=== PATIENT | female | born 1950 | race Caucasian/White ===

== ENCOUNTER → 2024-04-07 12:14 | Outpatient (REF) | payer OTHER, SELFPAY | LOC: PAVMRI 12:14 | PROVIDERS: ATTENDING PHYSICIAN Physician Assistant; FAMILY PHYSICIAN Internal Medicine | DX: M54.16 Radiculopathy, lumbar region (principal) | CPT/HCPCS: 72148 ==

== ENCOUNTER 2024-04-21 14:50 | Emergency (ER) | payer OTHER, SELFPAY ==
[2024-04-21 14:52] VITALS: BP 127/68
[2024-04-21 15:33] VITALS: BP 121/60
[2024-04-21 16:00] VITALS: BP 142/69
[2024-04-21] MEDS: DECADRON 10 MG PO (16:40)
[2024-04-21] MEDS: TORADOL 30 MG IM (16:41)
[2024-04-21 17:00] VITALS: BP 125/71
--- NOTE | 2024-04-21 18:03 | ED.GENMED ---
History of Present Illness
General
Chief Complaint: Dizziness
Source: patient and spouse
Exam Limitations: none
Time Seen by Provider: 04/21/24 15:38
Nursing documentation reviewed up to this point in time: agreed with
History of Present Illness
History of Present Illness:
74-year-old female past medical history of hyperlipidemia and asthma presenting to the emergency department today with concerns of lightheadedness facial pressure over the past few weeks. Had a preceding viral illness. Had some pressure to her
right ear as well. Occasionally feels some room spinning dizziness but denies it being ongoing and only worse with certain positioning's movement does seem to always improve when sitting still. None currently seems to be improving.
Past History
Past History
ED Past Medical History: Hypercholesterolemia and Other (Seasonal allergic rhinitis, osteoarthritis, Diverticulitis)
ED Past Surgical History: Orthopedic (Bilateral hip replacement, right bunionectomy), Tonsilectomy and Other (bilateral hip replacement. agree with pshx)
Social History
Tobacco: Former smoker
Alcohol: Occasional
Personal:
Living: with family
Family History
Family History: Negative Hypertension or CAD
Review of Systems
Review of Systems
Allergies reviewed?: Yes
All Other Systems: ROS reviewed and negative except as documented in HPI and ROS
Phy Exam
Physical Exam
Physical Exam:
GENERAL: Alert , in no apparent distress
EYE: pupils equal and reactive
NECK: Supple, no significant adenopathy.
ENT: Swollen boggy nasal turbinates, effusion to the right ear mmm
CARDIAC: Regular rate and rhythm .
LUNGS: Clear breath sounds bilaterally, no acute respiratory distress, no wheezes/rales/rhonchi
ABDOMEN: Soft, without focal tenderness, no r/g, no cvat
NEUROLOGICAL: Alert and oriented, no focal neuro deficits
SKIN: Warm and dry, skin intact.
MUSCULOSKELETAL: No edema, well perfused.
PSYCH: Normal and appropriate interaction.
Course
Orders/Labs/Results
Orders:
Orders
04/21/24 14:51
Electrocardiogram (*1) Urgent
Reason for Study: Vertigo / Dizzy
04/21/24 14:52
EKG- Treatment ONCE
04/21/24 16:06
Dexamethasone [Decadron] 10 mg PO NOW STA
Ketorolac [Toradol] 30 mg IM NOW STA
CR Cervical Spine 4 Or 5 Vw Urgent
Comment:
Reason For Exam: neck pain
Vital Signs
Initial and Last Documented VS:
Initial Vital Signs
Temp Pulse Resp BP Pulse Ox
98 F 60 16 127/68 100
04/21/24 14:52 04/21/24 14:52 04/21/24 14:52 04/21/24 14:52 04/21/24 14:52
Last Documented Vital Signs
Temp Pulse Resp BP Pulse Ox
98 F 60 16 127/68 100
04/21/24 14:52 04/21/24 14:52 04/21/24 14:52 04/21/24 14:52 04/21/24 14:52
MDM/Problems Addressed
MDM/Problems Addressed:
74-year-old female presenting to the emergency department today with concerns of congestion ear fullness. Vital signs are normal on arrival normal neurologic evaluation. Patient does have evidence of effusion to the right ear but no evidence of
infection. Was given a steroid to help with inflammation x-ray of the neck without acute abnormalities. No evidence of any meningismus. Stable for outpatient management management return precautions given.
*Critical Care Note
Total Time (30-74mins, 75-104mins- exclusive of procedures): Not Applicable
ED Attending Note
-
Portions of this chart may have been created with voice recognition software.� Occasional wrong word or��sound alike� substitutions may have occurred due to the inherent limitations of voice recognition software.
Discharge Plan
Departure
Patient Disposition: Home (Routine Discharge)
Date of Disposition: 04/21/24
Time of Disposition: 18:03
Patient with high blood pressure during this ER visit?: No
Condition: Good
Covid-19: Not Applicable
Discharge Problem:
Sinus headache
Instructions: Sinusitis in adults - ED discharge instructions
Prescriptions:
New
prednisone 20 mg tablet
40 mg PO DAILY 3 Days Qty: 6 0RF
No Action
mometasone [Nasonex] 17 GRAM spray,non-aerosol
2 spray intranasal DAILY
Claritin
1 PO DAILY
Fiber Con
1 tab PO DAILY
Aleve
PO PRN (Reason: pain)
atorvastatin 20 MG tablet
20 mg PO QPM
amoxicillin 500 MG capsule
500 mg PO
metronidazole 500 MG tablet
500 mg PO TID Qty: 30 0RF
levofloxacin 500 MG tablet
500 mg PO DAILY Qty: 10 0RF
Referrals:
Lisset Dailey DO [Family Provider] -
Activity Restrictions/Additional Instructions:
You came to the emergency department today with concerns of pressure to your sinuses and ear. Here you had a reassuring assessment. Please take the prescribed occasions and follow-up closely as an outpatient. Return for any worsening, new or
concerning symptoms.
Interventions
Interventions:
*Risk Screen - Suicide Last Done: 04/21/24 14:53
*Neglect/Abuse Screening Last Done: 04/21/24 14:53
Discharge Date and Time
Print Language: MARTINIQUAIS
== END 2024-04-21 18:20 | disposition home or self-care (01) ==
LOC: EMR 14:50
PROVIDERS: EMERGENCY PHYSICIAN Student in an Organized Health Care Education/Training Program; FAMILY PHYSICIAN Internal Medicine
DX: R51.9 Headache, unspecified (principal); E78.00 Pure hypercholesterolemia, unspecified; J45.909 Unspecified asthma, uncomplicated; M19.90 Unspecified osteoarthritis, unspecified site; Z87.891 Personal history of nicotine dependence; Z96.643 Presence of artificial hip joint, bilateral
CPT/HCPCS: 99283; 96372; 72050; 93005